=== PATIENT | female | born 1990 | race Caucasian/White ===

== ENCOUNTER 2016-10-12 21:57 | Emergency (ER) | payer BC ==
[~2016-10-12] VITALS: Ht 177.8 cm; Wt 70.1 kg
[2016-10-12 22:05] VITALS: TEMP 36.8; Ht 177.8 cm; Wt 70.1 kg
[2016-10-12] MEDS ORDERED: SODIUM CHLORIDE 0.9% 1000ML 1,000 ML IV STA (22:42)
[2016-10-12] MEDS ORDERED: KETOROLAC TROMETHAMINE 30 MG/ML VIAL IV STA (22:42)
[2016-10-12] MEDS ORDERED: AMPICILLIN/SULBACTAM SOD INJ 3,000 MG in SODIUM CHLORIDE 0.9% 100ML 100 ML IV ONE (22:45)
[2016-10-12] MEDS ORDERED: OPTIRAY 320 IV PRN (23:00)
[2016-10-12] MEDS ORDERED: OMEG10007 PO (23:03)
[2016-10-12] MEDS ORDERED: ASCO1CAP3 (23:03)
[2016-10-12] MEDS ORDERED: BCPILLS PO (23:03)
[2016-10-12] MEDS ORDERED: MULT-513 PO (23:03)
[2016-10-12 23:15] LABS: BASO % 0.2 %; BASO ABS # 0.01 K/uL (0-0.2); COMPLETE YES; EOS % 1.5 %; HEMATOCRIT 42.4 % (37-47); IG% 0.2 %; LYMPH % 41.4 %; LYMPH ABS # 2.52 K/uL (1.2-3.4); MEAN CELL VOLUME 88.7 fL (80-100); MEAN CORPUSCULAR HEMOGLOBIN 30.5 pg (25-34); MEAN CORPUSCULAR HGB CONC 34.4 g/dl (32-36); MEAN PLATELET VOLUME 10.7 fL (7.4-10.4); MONO % 7.6 %; NEUT % 49.1 %; PLATELET COUNT 262 K/uL (130-400); RED BLOOD COUNT 4.78 M/uL (4.2-5.4); WHITE BLOOD COUNT 6.09 K/uL (4.8-10.8)
[2016-10-12 23:58] LABS: BUN/CREATININE RATIO 16.3 (10-20); CALCIUM 9.1 mg/dl (8.5-10.1); CREATININE 0.97 mg/dl (0.60-1.20)
[2016-10-13] LABS: POTASSIUM 3.8 mmol/L (3.5-5.1)
[2016-10-13 01:47] VITALS: BP 123/78; PULSE 77; O2SAT 98
--- NOTE | 2016-10-13 04:53 | EMERGENCY ROOM VISIT NOTE ---
History First contact with patient: 22:30 Chief Complaint: BITE Stated Complaint: CAT BITE,SWELLING,FEVERISH,ABCESS History of Present Illness The patient is a 26 year old female who presents to the Emergency Room with complaints of Right to left sided face was started on Augmentin yesterday by health services. Patient is concerned there is an abscess. She states health services said there might be an abscess and was sent here for further evaluation. She has been on Augmentin for 24 hours. Tetanus is current. Her cat bit her. No chance for rabies. Patient denies fevers, chest pain, dyspnea , neck stiffness, dysphagia, headache, eye pain, dental pain or any other medical complaints. Review of Systems See HPI for pertinent positives & negatives. A total of 10 systems reviewed and were otherwise negative. Past Medical/Surgical History none Social History Smoking Status: Never Smoker Smokeless Tobacco Use: No Drug Use: none Occupation Status: [employer] student Current/Historical Medications Scheduled Ascorbic Acid (Vitamin C), 1 CAP DAILY Control Pills ( Control Pills), 1 TAB PO DAILY Fish Oil ([place]-3), 1 CAP PO DAILY Multivitamins/Minerals (Mvi With Minerals), 1 TAB PO DAILY Allergies Uncoded Allergies: OPIATES (Adverse Reaction, Intermediate, GI SYMPTOMS, 10/12/16) Physical Exam Vital Signs Date Time Temp Pulse Resp B/P Pulse Ox O2 Delivery O2 Flow Rate FiO2 10/13/16 01:47 77 16 123/78 98 10/13/16 00:03 78 16 123/73 98 Room Air 10/12/16 22:05 36.8 90 18 147/87 97 Room Air Pain Rating (0-10): 3.0 Physical Exam VITALS: Vitals are noted on the nurse's note and reviewed by myself. Vital signs stable. GENERAL: Pleasant female, in no acute distress, nondiaphoretic, well-developed well-nourished. SKIN: Left cheek with cat Bite patrick with 3 puncture wounds with no palpable abscess with minimal surrounding cellulitis less than 1 cm slightly edematous The rest of the skin was without rashes, erythema, edema, or bruising. There is no tenting of the skin. Capillary reflex less than 2 seconds. HEAD: Normocephalic atraumatic. EARS: External auditory canals clear, tympanic membranes pearly cortes without erythema or effusion bilaterally. EYES: Pupils equal round and reactive to light and accommodation. Conjunctivae without injection, sclerae without icterus. Extraocular movements intact. NOSE: Patent, turbinates without inflammation or discharge. No sinus tenderness. MOUTH: Mucous membranes moist. Pharynx without erythema or exudate. Uvula midline. Airway patent. Tongue does not deviate. NECK: Supple without nuchal rigidity. No lymphadenopathy. No thyromegaly. Cervical spine is nontender. No JVD. HEART: Regular rate and rhythm without murmurs gallops or rubs. LUNGS: Clear to auscultation bilaterally without wheezes, rales or rhonchi. No dullness to percussion. No retractions or accessory muscle use. ABDOMEN: Positive bowel sounds x 4. Normal tympanic percussion. Soft, nontender, without masses or organomegaly. Harrell sign negative. No guarding or rebound tenderness. MUSCULOSKELETAL: No muscle atrophy, erythema, or edema noted. NEURO: Patient was alert and oriented to person place and time. Normal sensation to light and sharp touch. No focal neurological deficits. Medical Decision & Procedures Laboratory Results 10/12/16 23:00 Red Blood Count 4.78, Mean Corpuscular Volume 88.7, Mean Corpuscular Hemoglobin 30.5, Mean Corpuscular Hemoglobin Concent 34.4, Mean Platelet Volume 10.7, Neutrophils (%) (Auto) 49.1, Lymphocytes (%) (Auto) 41.4, Monocytes (%) (Auto) 7.6, Eosinophils (%) (Auto) 1.5, Basophils (%) (Auto) 0.2, Neutrophils # (Auto) 3.00, Lymphocytes # (Auto) 2.52, Monocytes # (Auto) 0.46, Eosinophils # (Auto) 0.09, Basophils # (Auto) 0.01 10/12/16 23:00 Test 10/12/16 23:00 White Blood Count 6.09 K/uL (4.8-10.8) Red Blood Count 4.78 M/uL (4.2-5.4) Hemoglobin 14.6 g/dL (12.0-16.0) Hematocrit 42.4 % (37-47) Mean Corpuscular Volume 88.7 fL (80-100) Mean Corpuscular Hemoglobin 30.5 pg (25-34) Mean Corpuscular Hemoglobin Concent 34.4 g/dl (32-36) Platelet Count 262 K/uL (130-400) Mean Platelet Volume 10.7 fL (7.4-10.4) Neutrophils (%) (Auto) 49.1 % Lymphocytes (%) (Auto) 41.4 % Monocytes (%) (Auto) 7.6 % Eosinophils (%) (Auto) 1.5 % Basophils (%) (Auto) 0.2 % Neutrophils # (Auto) 3.00 K/uL (1.4-6.5) Lymphocytes # (Auto) 2.52 K/uL (1.2-3.4) Monocytes # (Auto) 0.46 K/uL (0.11-0.59) Eosinophils # (Auto) 0.09 K/uL (0-0.5) Basophils # (Auto) 0.01 K/uL (0-0.2) RDW Standard Deviation 43.6 fL (36.4-46.3) RDW Coefficient of Variation 13.3 % (11.5-14.5) Immature Granulocyte % (Auto) 0.2 % Immature Granulocyte # (Auto) 0.01 K/uL (0.00-0.02) Anion Gap 10.0 mmol/L (3-11) Est Creatinine Clear Calc Drug Dose 96.7 ml/min Estimated GFR () 94.7 Estimated GFR (Non- 81.7 BUN/Creatinine Ratio 16.3 (10-20) Calcium Level 9.1 mg/dl (8.5-10.1) Medications Administered Medications (Trade) Dose Ordered Sig/[place] Route Start Time Stop Time Status Last Admin Dose Admin Sodium Chloride (Nss 1000ml) 1,000 ml @ 999 mls/hr Q1H1M STAT IV 10/12/16 22:42 10/12/16 23:42 DC 10/12/16 23:37 999 MLS/HR Ketorolac Tromethamine 30 mg 30 mg NOW STAT IV 10/12/16 22:42 10/12/16 22:47 DC 10/12/16 23:38 30 MG Ampicillin Sodium/ Sulbactam Sodium/ Sodium Chloride (Unasyn Inj/Nss 100ml) 108 ml @ 200 mls/hr ONE ONCE IV 10/12/16 22:45 10/12/16 23:17 DC 10/12/16 23:38 200 MLS/HR ED Course Prior records reviewed and summarized as above. Triage Nursing notes reviewed. The patient's history was concerning for swelling and redness of the skin after. Differential diagnosis: Etiologies such as cellulitis, abscess, MRSA infection, necrotizing fasciitis, as well as others were entertained.. Physical examination: The physical examination was consistent with cellulitis ER treatment provided: Unasyn, Toradol On reassessment the patient felt better. Diagnostics interpreted by me: The labs revealed no worrisome leukocytosis or left slight abnormality Imaging studies: CT of the face concerning for cellulitis without abscess per stat radiology Animal bite paper work was filled out. This appears to be isolated cellulitis. His was advised continue the Augmentin. She is advised follow-up health services in 2 days for wound recheck or here in the ER sooner for fevers, spreading redness, drainage, worsening signs or symptoms or as needed. She had no signs of meningitis on exam. No abscess. She was well-appearing. No white count. By the evaluation outlined above emergent etiologies such as abscess, necrotizing fasciitis, as well as others were deemed relatively unlikely. The pt informed about the findings as listed above. All questions were answered and pleased with the treatment. Return instructions were outlined and the patient was discharged in stable condition. Referral: The patient was referred back to primary care physician for follow-up in 2 to 3 days for a recheck of the current condition. Medical Decision as above Impression Primary Impression: Facial cellulitis Additional Impression: Cat bite of face Departure Information Dispostion Home / Self-Care Condition [employer] HOME CARE DOCUMENTATION FORM, School Instructions, Return To School: 2 days IMPORTANT VISIT INFORMATION Patient Instructions On License Of [facility], ED Bite Cat Additional Instructions Amoxicillin Clavulanate (Augmentin) 875mg: Take one pill twice daily for 10 days for your infection. All antibiotics can cause diarrhea. If this occurs and you feel worse or it does not resolve in 1-2 days follow up with your doctor or return to the Emergency Department as this could be signs of serious underlying problems. Any medication can cause an allergic reaction, stop the pills immediately and return to the ER for rash, hives, breathing difficulties, or swelling. Ibuprofen(Motrin, Advil) may be used for fever or pain. Use 600mg every six hours as needed. Take with food. Avoid using more than 2400mg in a 24 hour period. Do not use 2400mg per day for more than three consecutive days without physician direction. Prolonged inappropriate use can lead to stomach upset or ulcers. (AND/OR) Acetaminophen(Tylenol) may be used for fever or pain. Use 1000mg every six hours as needed. Avoid using more than 3000mg in a 24 hour period. Warm compresses to the affected area 4 times daily for 15-20 minutes. Rest and drink plenty of fluids. Continue current medications. Return to the ER for severe pain, persistent fevers, spreading redness, or any worsening of your condition. Follow up with your primary physician/health services within 2-3 days for a recheck of the current condition. School Instructions Return To School: 2 days Problem Qualifiers
--- NOTE | 2016-10-13 07:21 | DIAGNOSTIC IMAGING REPORT ---
CT FACIAL-MAXILLOFACIAL WITH CT DOSE: 133.95 mGy.cm CLINICAL HISTORY: Left cat bite face infx, ? abscess TECHNIQUE: Axial images of the face were obtained following intravenous injection of 91 cc of Optiray 320 IV. Coronal and sagittal reformats were viewed. COMPARISON STUDY: None. FINDINGS: Visualized portions of the intracranial contents are unremarkable. Orbits are within normal limits. Mastoid air cells are clear. There is minimal mucosal thickening of the sinuses. Note is made of mild left facial subcutaneous infiltration. There is no fluid collection to suggest abscess. Major vasculature of the upper neck is patent. Epiglottis is normal. IMPRESSION: Mild left facial subcutaneous infiltration which may reflect cellulitis. No abscess. Electronically signed by: Bo Albarado M.D. 10/13/2016 7:20 AM Dictated Date/Time: 10/13/2016 7:17 AM
== END 2016-10-13 01:48 | disposition home or self-care (01) ==
LOC: C.EDB 21:58
DX: L03.211 Cellulitis of face (principal); W55.01XA Bitten by cat, initial encounter

== ENCOUNTER → 2017-07-22 | Outpatient (CLI) | payer BC ==
[~2017-07-22] MED LIST: ASCO1CAP3; BCPILLS PO; MULT-513 PO; OMEG10007 PO
--- NOTE | 2017-07-22 16:28 | DIAGNOSTIC IMAGING REPORT ---
RIGHT LOWER LEG MRI HISTORY: RT CALF PAIN TECHNIQUE: Multiplanar multisequence MRI of the right lower leg was performed without the use of contrast. COMPARISON STUDY: None. FINDINGS: Normal marrow signal intensity seen throughout the visualized osseous structures. No fracture or dislocation. Mild edema adjacent to the anteromedial cortex of the mid to distal tibia. This could represent a periostitis related to medial tibial stress syndrome. No evidence for stress fracture at this time. Minimal edema along the inferior aspect of the gastrocnemius muscles. Remaining soft tissues of the lower leg appear intact. The Achilles tendon is normal in caliber and signal intensity. IMPRESSION: 1. Minimal edema along the inferior aspect of the gastrocnemius muscles. This favors a mild muscular strain. 2. Mild edema adjacent to the anteromedial cortex of the mid to distal tibia. This could represent a periostitis related to medial tibial stress syndrome. No evidence for stress fracture at this time. Electronically signed by: Scar Santamaria M.D. 07/22/2017 4:26 PM Dictated Date/Time: 07/22/2017 4:22 PM
== END | disposition home or self-care (01) ==
LOC: C.MRIBC 14:57
PROVIDERS: ATTEND Physician Assistant
DX: S88.111A Complete traumatic amputation at level between knee and ankle, right lower leg, initial encounter (principal); X58.XXXA Exposure to other specified factors, initial encounter; R60.0 Localized edema; M79.651 Pain in right thigh

== ENCOUNTER → 2018-04-01 | Outpatient (CLI) | payer BC ==
--- NOTE | 2018-04-01 14:13 | DIAGNOSTIC IMAGING REPORT ---
ABDOMINAL ULTRASOUND, RIGHT UPPER QUADRANT HISTORY: Right-sided abdominal pain.. COMPARISON: None. FINDINGS: Pancreas: The pancreas demonstrates a normal echotexture. Liver: Unremarkable. Gallbladder: No gallbladder wall thickening. No gallstones. CBD: 3 mm. Right kidney: No hydronephrosis. IMPRESSION: No significant abnormality identified within the right upper quadrant. Electronically signed by: Scar Santamaria M.D. 04/01/2018 2:12 PM Dictated Date/Time: 04/01/2018 2:11 PM
--- NOTE | 2018-04-01 14:18 | DIAGNOSTIC IMAGING REPORT ---
PELVIC COMPLETE NON OB HISTORY: 27 years-old Female PELVIC PAIN, CHECKING OF INTRAUTERINE DEVICE acute generalized pelvic pain with intrauterine device COMPARISON: None available TECHNIQUE: Multiple real-time sonographic images of the deep pelvic structures were obtained transabdominally assessing grayscale appearance, color and spectral flow. Patient refused the transvaginal portion of the exam. FINDINGS: Anteflexed uterus measures 10.6 x 5.6 x 2.7 cm. Endometrium is homogeneous, 4 mm in thickness. Intrauterine device appears to be appropriately located within the mid and fundal portion of the endometrial canal. Trace free fluid is noted within the cul-de-sac. The left ovary measures 3.8 x 2.3 x 2.3 cm demonstrates normal-appearing follicles with arterial inflow. The right ovary measures 5.7 x 3.4 x 3.1 cm and also demonstrates arterial inflow. Hypoechoic lesion about the right ovary measures up to 2.0 cm suggesting follicle with adjacent punctate calcification. IMPRESSION: 1. Satisfactory positioning of the intrauterine device. 2. Unremarkable sonographic appearance of the left ovary. No evidence of ovarian torsion. 3. 2.0 cm hypoechoic lesion of the right ovary suggests involuting follicle. 4. Mild free pelvic fluid, likely physiologic. The above report was generated using voice recognition software. It may contain grammatical, syntax or spelling errors. Electronically signed by: Erich Díaz M.D. 04/01/2018 2:17 PM Dictated Date/Time: 04/01/2018 2:13 PM
== END | disposition home or self-care (01) ==
LOC: C.ULTR 12:52
PROVIDERS: ATTEND Physician Assistant Medical
DX: Z30.431 Encounter for routine checking of intrauterine contraceptive device (principal); R10.2 Pelvic and perineal pain; R10.31 Right lower quadrant pain